=== PATIENT | female | born 1980 | race Caucasian/White ===

== ENCOUNTER 2018-07-05 07:51 | Emergency (ER) | payer BC ==
[2018-07-05] MEDS ORDERED: DIAZEPAM 5 MG TABLET ONE (08:25)
[2018-07-05] MEDS ORDERED: KETOROLAC 30 MG/ML INJ ONE (08:25)
--- NOTE | 2018-07-05 08:41 | EDPHYS ---
Physician Documentation [facility] Name: Tereza Hercules Age: 38 yrs Sex: Female : 1980 Arrival Date: 07/05/2018 Time: 07:54 Bed 19 Private MD: None, None ED Physician Bubba Zamora HPI: 07/05 08:14 This 38 yrs old Female presents to ER via Wheelchair with complaints of Back pm1 Pain. 08:14 The symptoms are located in the left low back and left buttocks. Onset: The pm1 symptoms/episode began/occurred 1 month(s) ago. The pain does not radiate. Associated signs and symptoms: Pertinent negatives: abdominal pain, chest pain, constipation, dysuria, fever, incontinence, numbness, tingling, urinary retention, vomiting, weakness, SOB. The problem was sustained Patient believes that she slept wrong and woke up with the pain to left lower back and buttocks. Modifying factors: The patient symptoms are alleviated by massage and raising left leg, the patient symptoms are aggravated by sitting and standing. Severity of symptoms: in the emergency department the symptoms are unchanged. The patient has experienced similar episodes in the past, Patient with a history of chronic back pain. The patient has not recently seen a physician. 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 - Social history:: Smoking status: Patient uses tobacco products, denies chronic smoking, but will smoke occasionally. - Ebola Screening: : Patient negative for fever greater than or equal to 101.5 degrees Fahrenheit, and additional compatible Ebola Virus Disease symptoms Patient denies exposure to infectious person Patient denies travel to an Ebola-affected area in the 21 days before illness onset No symptoms or risks identified at this time. ROS: 08:14 Constitutional: Negative for fever, chills, and weight loss, Eyes: Negative for injury, pm1 pain, redness, and discharge, ENT: Negative for injury, pain, and discharge, Neck: Negative for injury, pain, and swelling, Cardiovascular: Negative for chest pain, palpitations, and edema, Respiratory: Negative for shortness of breath, cough, wheezing, and pleuritic chest pain, Abdomen/GI: Negative for abdominal pain, nausea, vomiting, diarrhea, and constipation. 08:14 : Negative for injury, bleeding, discharge, and swelling, MS/Extremity: Negative for injury and deformity, Skin: Negative for injury, rash, and discoloration, Neuro: Negative for headache, weakness, numbness, tingling, and seizure. 08:14 Back: Positive for of the left low back and left buttock pain, Negative for radiated pain. Exam: 08:14 Constitutional: This is a well developed, well nourished patient who is awake, alert, pm1 and in no acute distress. Head/Face: Normocephalic, atraumatic. Eyes: Pupils equal round and reactive to light, extra-ocular motions intact. Lids and lashes normal. Conjunctiva and sclera are non-icteric and not injected. Cornea within normal limits. Periorbital areas with no swelling, redness, or edema. ENT: Nares patent. No nasal discharge, no septal abnormalities noted. Tympanic membranes are normal and external auditory canals are clear. Oropharynx with no redness, swelling, or masses, exudates, or evidence of obstruction, uvula midline. Mucous membranes moist. Neck: Trachea midline, no thyromegaly or masses palpated, and no cervical lymphadenopathy. Supple, full range of motion without nuchal rigidity, or vertebral point tenderness. No Meningismus. Chest/axilla: Normal chest wall appearance and motion. Nontender with no deformity. No lesions are appreciated. Cardiovascular: Regular rate and rhythm with a normal S1 and S2. No gallops, murmurs, or rubs. No pulse deficits. Respiratory: Lungs have equal breath sounds bilaterally, clear to auscultation and percussion. No rales, rhonchi or wheezes noted. No increased work of breathing, no retractions or nasal flaring. Abdomen/GI: Soft, non-tender, with normal bowel sounds. No distension or tympany. No guarding or rebound. No evidence of tenderness throughout. 08:14 Skin: Warm, dry with normal turgor. Normal color with no rashes, no lesions, and no evidence of cellulitis. MS/ Extremity: Pulses equal, no cyanosis. Neurovascular intact. Full, normal range of motion. 08:14 Back: ROM is normal, normal spinal alignment noted, muscle spasm, is appreciated in the left low back and left buttocks, Straight leg raises: right lower extremity does not illicit pain, left lower extremity does not illicit pain, Passively raising the patient's left leg improves her pain to left lower back and buttocks. 08:14 Neuro: Orientation: is normal, Mentation: is normal, Motor: moves all fours, strength is normal, strength is 5/5 in all extremities, Sensation: is normal, no obvious gross deficits. Vital Signs: 08:06 BP 102 / 61; Pulse 66; Resp 18; Pulse Ox 99% on R/A; Weight 58.97 kg; Height 5 ft. 3 em in. (160.02 cm); Pain 04/28; 08:06 Body Mass Index 23.03 (58.97 kg, 160.02 cm) em MDM: 08:00 Patient medically screened. pm1 08:16 Data reviewed: vital signs. Data interpreted: Pulse oximetry: on room air is 99 %. pm1 Interpretation: normal. 08:38 Counseling: I had a detailed discussion with the patient and/or guardian regarding: the pm1 historical points, exam findings, and any diagnostic results supporting the discharge/admit diagnosis, the need for outpatient follow up, to return to the emergency department if symptoms worsen or persist or if there are any questions or concerns that arise at home, Patient standing in room and stretching. 07/05 08:39 Order name: Urine Dipstick--Ancillary (enter results) 07/05 08:39 Order name: Urine --Ancillary (enter results) 07/05 08:26 Order name: Urine Dipstick-Ancillary (obtain specimen); Complete Time: 08:30 pm1 07/05 08:26 Order name: Urine Test (obtain specimen); Complete Time: 08:30 pm1 Administered Medications: 08:24 Drug: Valium 5 mg Route: PO; em 08:41 Follow up: Response: No adverse reaction; Pain is decreased em 08:30 Drug: TORadol 60 mg Route: IM; Site: right gluteus; em 08:41 Follow up: Response: No adverse reaction; Pain is decreased em Disposition: 07/05/18 08:40 Discharged to Home. Impression: Low back pain, Strain of muscle, fascia and tendon of lower back. - Condition is Stable. - Discharge Instructions: Back Pain, Adult, Muscle Strain, Musculoskeletal Pain, Back Injury Prevention, [id number]. - Prescriptions for Naprosyn 500 mg Oral Tablet - take 1 tablet by ORAL route 2 times per day take with food; 30 tablet. Valium 5 mg Oral Tablet - take 1 tablet by ORAL route every 8 hours As needed; 10 tablet. - Medication Reconciliation Form, Thank You Letter, Prescription Opioid Use form. - Follow up: Emergency Department; When: As needed; Reason: Worsening of condition. Follow up: Private Physician; When: 2 - 3 days; Reason: Recheck today's complaints, Continuance of care, Re-evaluation by your physician. - Problem is new. - Symptoms have improved. Addendum: 07/06/2018 10:14 Co-signature as Attending Physician, Bubba Zamora MD. g s Signatures: Dispatcher [employer] EDMS Christiano Hameed, DIRECTOR INDUSTRIAL MUSEUM DIRECTOR INDUSTRIAL MUSEUM em Wilson Meadows, DRY CELL TESTER DRY CELL TESTER pm1 Bubba Zamora MD MD Corrections: (The following items were deleted from the chart) 07/05 08:59 08:40 07/05/2018 08:40 Discharged to Home. Impression: Low back pain; Strain of muscle, em fascia and tendon of lower back. Condition is Stable. Forms are Medication Reconciliation Form, Thank You Letter, Antibiotic Education, Prescription Opioid Use. Follow up: Emergency Department; When: As needed; Reason: Worsening of condition. Follow up: Private Physician; When: 2 - 3 days; Reason: Recheck today's complaints, Continuance of care, Re-evaluation by your physician. Problem is new. Symptoms have improved. pm1
--- NOTE | 2018-07-05 08:41 | ER ---
Nurse's Notes [facility] Name: Tereza Hercules Age: 38 yrs Sex: Female : 1980 Arrival Date: 07/05/2018 Time: 07:54 Bed 19 Private MD: None, None Diagnosis: Low back pain;Strain of muscle, fascia and tendon of lower back Presentation: 07/05 08:03 Presenting complaint: Patient states: low back pain x 1 month, denies injury, em aggravated by movement, denies urinary symptoms. Transition of care: patient was not received from another setting of care. Onset of symptoms was May 2018. Risk Assessment: Do you want to hurt yourself or someone else? Patient reports no desire to harm self or others. Initial Sepsis Screen: Does the patient meet any 2 criteria? No. Patient's initial sepsis screen is negative. Does the patient have a suspected source of infection? No. Patient's initial sepsis screen is negative. Care prior to arrival: None. 08:03 Method Of Arrival: Wheelchair em 08:15 Acuity: STEPHANY 4 aa5 Triage Assessment: 08:06 General: Appears uncomfortable, Behavior is cooperative. Pain: Complains of pain in em lumbar area, left low back and right low back. Musculoskeletal: Circulation, motion, and sensation intact. Capillary refill < 3 seconds, Range of motion: intact in all extremities. 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 - Social history:: Smoking status: Patient uses tobacco products, denies chronic smoking, but will smoke occasionally. - Ebola Screening: : Patient negative for fever greater than or equal to 101.5 degrees Fahrenheit, and additional compatible Ebola Virus Disease symptoms Patient denies exposure to infectious person Patient denies travel to an Ebola-affected area in the 21 days before illness onset No symptoms or risks identified at this time. Screenin:08 Abuse screen: Denies threats or abuse. Nutritional screening: No deficits noted. em Tuberculosis screening: No symptoms or risk factors identified. Fall Risk None identified. Assessment: 08:09 General: Appears uncomfortable, Behavior is calm, cooperative. Pain: Complains of pain em in right low back and left low back and lumbar area Pain currently is 9 out of 10 on a pain scale. Pain began 1 month ago Alleviated by repositioning, Aggravated by exercise, increased activity. Neuro: Level of Consciousness is awake, alert, obeys commands, Oriented to person, place, time, situation. Cardiovascular: Capillary refill < 3 seconds Patient's skin is warm and dry. Respiratory: Airway is patent Respiratory effort is even, unlabored, Respiratory pattern is regular, symmetrical. GI: Abdomen is flat. : Denies burning with urination, discharge, vaginal bleeding. EENT: No signs and/or symptoms were reported regarding the EENT system. Derm: Skin is intact, Skin is pink, warm \\T\\ dry. Musculoskeletal: Circulation, motion, and sensation intact. Capillary refill < 3 seconds, Range of motion: intact in all extremities. 08:09 Reassessment: I agree with assessment completed by Christiano Hameed LVN . aa5 08:39 Reassessment: Patient appears in no apparent distress at this time. Patient and/or em family updated on plan of care and expected duration. Pain level reassessed. Patient is alert, oriented x 3, equal unlabored respirations, skin warm/dry/pink. pt standing in room, states, "I am stretching and feel better now." provider notified Patient states symptoms have improved. Vital Signs: 08:06 BP 102 / 61; Pulse 66; Resp 18; Pulse Ox 99% on R/A; Weight 58.97 kg; Height 5 ft. 3 em in. (160.02 cm); Pain 9/10; 08:06 Body Mass Index 23.03 (58.97 kg, 160.02 cm) em ED Course: 07:54 Patient arrived in ED. sb2 07:54 None, None is Private Physician. sb2 07:57 Christiano Hameed LVN is Primary Nurse. em 07:59 Wilson Meadows NP is PHCP. pm1 07:59 Bubba Zamora MD is Attending Physician. pm1 08:06 Arm band placed on. em 08:08 Patient has correct armband on for positive identification. Bed in low position. Call em light in reach. Adult w/ patient. 08:15 Triage completed. aa5 08:58 No provider procedures requiring assistance completed. Patient did not have IV access em during this emergency room visit. Administered Medications: 08:24 Drug: Valium 5 mg Route: PO; em 08:41 Follow up: Response: No adverse reaction; Pain is decreased em 08:30 Drug: TORadol 60 mg Route: IM; Site: right gluteus; em 08:41 Follow up: Response: No adverse reaction; Pain is decreased em Outcome: 08:40 Discharge ordered by . pm1 08:58 Discharged to home via wheelchair. em 08:58 Condition: good 08:58 Discharge instructions given to patient, Instructed on discharge instructions, follow up and referral plans. no drinking with medication, no driving heavy equipment, medication usage, Demonstrated understanding of instructions, follow-up care, medications, Prescriptions given X 2. 08:59 Patient left the ED. em Signatures: Christiano Hameed, NICOLE PARKING LOT SIGNALER em Shraddha Sanches RN RN aa5 Wilson Meadows, MEMO INTERNET MARKETING ANALYST pm1 Briana Flores sb2
[2018-07-05 09:09] VITALS: BP 102/61; O2SAT 99
[2018-07-05 14:25] LABS: Urine Blood TRACE (NEG); Urine Glucose NEGATIVE (NEG); Urine Protein NEGATIVE (NEG); Urine Specific Gravity 1.015 (1.005-1.030)
== END 2018-07-05 08:59 | disposition home or self-care (01) ==
LOC: ER 07:51
DX: S39.012A Strain of muscle, fascia and tendon of lower back, initial encounter (principal); X58.XXXA Exposure to other specified factors, initial encounter; Z72.0 Tobacco use
CPT/HCPCS: 81003; 81025; 96372; 99283

== ENCOUNTER 2020-03-22 03:36 | Emergency (ER) | payer BC ==
[2020-03-22 04:11] LABS: Basophils % 0.8 % (0-1.3); Hematocrit 35.9 % (36.0-45.0); MPV 7.6 fL (7.6-11.3); RBC Red Blood Cell Count 4.14 M/uL (3.86-4.86)
[2020-03-22 04:15] LABS: Potassium 3.4 mmol/L (3.5-5.1)
[2020-03-22 04:34] LABS: Barbiturates NEGATIVE (NEGATIVE); Benzodiazepines POSITIVE (NEGATIVE); Cocaine NEGATIVE (NEGATIVE); METHAMPHETAM POSITIVE (NEGATIVE); Methadone NEGATIVE (NEGATIVE); Opiates NEGATIVE (NEGATIVE); Phencyclidine NEGATIVE (NEGATIVE); THC Cannibis NEGATIVE (NEGATIVE)
[2020-03-22 05:41] LABS: Urine Specific Gravity >1.030 (1.005-1.030)
[2020-03-22 05:41] LABS: Urine Blood TRACE (NEG); Urine Glucose NEGATIVE (NEG); Urine Protein 2+ (NEG); Urine Specific Gravity >1.030 (1.005-1.030); Urine pH 5.5 (5.0-7.0)
[2020-03-22] MEDS ORDERED: NA CHLORIDE 0.9% 1,000 ML ONE (06:14)
[2020-03-22] MEDS ORDERED: TETANUS & DIPHTHERIA TOX,ADULT 0.5 ML VIAL ONE (07:56)
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
[2020-03-22] MEDS ORDERED: IBUPROFEN 400 MG TAB ONE (08:57)
[2020-03-22 10:10] VITALS: TEMP 98
[2020-03-22 10:12] VITALS: O2SAT 100
[2020-03-22 10:13] VITALS: BP 102/65
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
== END 2020-03-22 10:04 | disposition home or self-care (01) ==
LOC: ER 03:36
DX: F15.10 Other stimulant abuse, uncomplicated (principal); V49.40XA Driver injured in collision with unspecified motor vehicles in traffic accident, initial encounter; E11.9 Type 2 diabetes mellitus without complications; Z23 Encounter for immunization; Z88.0 Allergy status to penicillin
CPT/HCPCS: 85025; 80048; 36415; 80320; 81025; 82565; 80307 ×8; 81003; 70450; 72125; 71260; 74177; 90714; Q9967; J7030; 90471; 96360; 96361; 99284; G0390

== ENCOUNTER 2021-03-19 12:52 | Emergency (ER) | payer BC ==
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
[2021-03-19 18:31] VITALS: BP 130/81; TEMP 97.5
[2021-03-19 18:32] VITALS: O2SAT 99
== END 2021-03-19 18:24 | disposition home or self-care (01) ==
LOC: ER 12:52
PROC: 0JQ00ZZ Repair Scalp Subcutaneous Tissue and Fascia, Open Approach (ICD-10-PCS; principal; 2021-03-19)
DX: S01.01XA Laceration without foreign body of scalp, initial encounter (principal); W22.8XXA Striking against or struck by other objects, initial encounter; Y92.009 Unspecified place in unspecified non-institutional (private) residence as the place of occurrence of the external cause; F17.210 Nicotine dependence, cigarettes, uncomplicated; E11.9 Type 2 diabetes mellitus without complications; Z88.0 Allergy status to penicillin
CPT/HCPCS: 70450; 99284

== ENCOUNTER 2023-03-16 18:44 | Emergency (ER) | payer BC ==
[2023-03-16] MEDS ORDERED: LORazepam 2 MG/ML VIAL ONE (18:53)
[2023-03-16] MEDS ORDERED: WATER FOR INJ,STERILE 10 ML ONE (18:53)
[2023-03-16] MEDS ORDERED: ZIPRASIDONE MESYLA 20 MG/VIAL IM ONE (18:53)
[2023-03-16 19:04] LABS: Hematocrit 38.1 % (36.0-45.0); Lymphocytes % 35.1 % (15.3-44.8); MPV 6.9 fL (7.6-11.3); RBC Red Blood Cell Count 3.92 M/uL (3.86-4.86)
[2023-03-16 19:11] LABS: Protime INR 1.08
[2023-03-16 19:35] LABS: ALT/SGPT 19 U/L (13-56); AST/SGOT 13 U/L (15-37); Albumin 3.3 g/dL (3.4-5.0); Alkaline Phosphatase 62 U/L (45-117); BUN Blood Urea Nitrogen 19 mg/dL (7-18); Bicarbonate 29 mEq/L (21-32); Bilirubin Total 0.2 mg/dL (0.2-1.0); Glomerular Filtration Rate 94 ml/min (=/>90); Glucose Level 74 mg/dL (74-106); Potassium 3.5 mEq/L (3.5-5.1); Protein, Total 6.1 g/dL (6.4-8.2); Sodium Level 140 mEq/L (136-145)
[2023-03-16] MEDS ORDERED: RSI MEDICATION KIT IV ONE ×2 (19:35→23:39)
[2023-03-16 19:36] LABS: Bilirubin Direct < 0.1 mg/dL (0-0.2); Bilirubin Indirect, Calculated ND mg/dL (0.2-0.8)
[2023-03-16] MEDS ORDERED: MIDAZOLAM HCL 2 MG/2 ML INJ ONE (20:32)
--- NOTE | 2023-03-16 20:47 | RAD REPORT ---
EXAM DESCRIPTION: RAD - Chest Single View - 03/16/2023 8:38 pm CLINICAL HISTORY: altered mental status Chest pain. COMPARISON: CHEST PA AND LAT 2 VIEW dated 09/18/2014 FINDINGS: Portable technique limits examination quality. The lungs are grossly clear. The heart is normal in size. No displaced fractures. IMPRESSION: No acute intrathoracic process suspected.
[2023-03-16] MEDS ORDERED: KETAMINE HCL IN 0.9 % NACL 50 MG/5 ML SYRINGE IV ONE (20:58)
--- NOTE | 2023-03-16 21:26 | RAD REPORT ---
EXAM DESCRIPTION: CT - [id number] - 03/16/2023 9:16 pm CLINICAL HISTORY: Trauma, head and neck injury. MENTAL STATUS CHANGE COMPARISON: No comparisons TECHNIQUE: Axial 5 mm thick images of the head were obtained. Axial 2 mm thick images of the cervical spine were obtained with sagittal and coronal reconstruction images generated and reviewed. All CT scans are performed using dose optimization technique as appropriate and may include automated exposure control or mA/KV adjustment according to patient size. FINDINGS: CT HEAD WITHOUT CONTRAST: No acute hemorrhage, hydrocephalus or extra-axial collection is identified.No areas of brain edema or midline shift. The paranasal sinuses and mastoids are clear.The calvarium is intact. CT CERVICAL SPINE WITHOUT CONTRAST: No fracture or subluxation.Mild spondylosis C5-6.No prevertebral soft tissues swelling is identified. IMPRESSION: No acute intracranial or cervical spine findings.
[2023-03-16 22:00] LABS: Specific Gravity < 1.005 (1.005-1.030)
[2023-03-16 22:09] LABS: Barbiturates NEGATIVE (NEGATIVE); Benzodiazepines POSITIVE (NEGATIVE); Cocaine NEGATIVE (NEGATIVE); METHAMPHETAM POSITIVE (NEGATIVE); Methadone NEGATIVE (NEGATIVE); Opiates NEGATIVE (NEGATIVE); Phencyclidine NEGATIVE (NEGATIVE); THC Cannibis NEGATIVE (NEGATIVE)
[2023-03-16] MEDS ORDERED: D10W 250 ML IV ONE (22:09)
[2023-03-16 22:17] LABS: Arterial Blood Carboxyhemoglob 2.5 % (0-1.5); Blood Gas Oxyhemoglobin 89.2 % (94-97)
[2023-03-16 22:28] LABS: Calcium Oxalate Crystals- Ur Few /HPF (None Seen); Specific Gravity < 1.005 (1.005-1.030); Urine Bacteria <20 /HPF (<20); Urine Bilirubin NEGATIVE (Negative); Urine Blood Negative (Negative); Urine Clarity Turbid (Clear); Urine Color Colorless (Yellow); Urine Glucose NEGATIVE (Negative); Urine Protein NEGATIVE (Negative); Urine Urobilinogen Normal (Normal); Urine pH 6.5 (5.0-7.0)
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
[2023-03-16] MEDS ORDERED: NALOXONE HCL 2 MG/2 ML VIAL ONE (22:37)
[2023-03-16] MEDS ORDERED: NA CHLORIDE 0.9% 2,000 ML ONE (22:37)
[2023-03-16] MEDS ORDERED: HALOPERIDOL LACT 5 MG/ML INJ ONE (23:22)
[2023-03-16] MEDS ORDERED: DIPHENHYDRAMINE 50 MG/ML VIAL ONE (23:22)
[2023-03-16] MEDS ORDERED: NA CHLORIDE 0.9% 1,000 ML ONE (23:39)
[2023-03-16] MEDS ORDERED: ETOMIDATE 20 MG/10 ML VIAL IV ONE (23:43)
[2023-03-16] MEDS ORDERED: propofoL 1,000 MG/100 ML VIAL IV ONE (23:49)
[2023-03-16] MEDS ORDERED: MIDAZOLAM HCL IN 0.9 % NACL/PF 100 MG/100 ML BAG IVPB ONE (23:49)
[2023-03-17 00:28] LABS: Arterial Blood Carboxyhemoglob 1.8 % (0-1.5); Blood Gas Oxyhemoglobin 94.8 % (94-97); Blood O2 Saturation 98.1 % (92-98.5)
[2023-03-17 02:31] VITALS: TEMP 97
[2023-03-17 02:35] VITALS: O2SAT 100
[2023-03-17 02:43] VITALS: BP 99/57
--- NOTE | 2023-03-17 13:09 | EKG ---
Test Date: 2023-03-16 Test Time: 21:36:42 [employer] Technician: TALA MEASUREMENT RESULTS: Intervals: Rate: 74 OH: 148 QRSD: 74 QT: 436 QTc: 483 Wilson: P: 82 OH: 148 QRS: 90 T: 74 INTERPRETIVE STATEMENTS: Normal sinus rhythm Rightward axis Prolonged QT Abnormal ECG No previous ECG available for comparison Electronically Signed On 03-17-23 13:08:53 CDT by Jarrod Ridley
--- NOTE | 2023-03-17 19:30 | RAD REPORT ---
EXAM DESCRIPTION: RAD - Chest Single View - 03/17/2023 12:01 am CLINICAL HISTORY: The patient is 42 years old and is Female; air way protection TECHNIQUE: Frontal view of the chest. COMPARISON: March 16, 2023 8:34 PM FINDINGS: Lungs: No consolidation. Pleural space: Unremarkable. No pneumothorax. Heart: Unremarkable. Mediastinum: Unremarkable. Bones/joints: Unremarkable. Tubes, lines and devices: Endotracheal tube with tip 5 cm above the kinsey. IMPRESSION: Endotracheal tube with tip 5 cm above the kinsey. Electronically signed by: Oscar Peoples MD 03/17/2023 12:31 AM CDT Due to temporary technical issues with the PACS/Fluency reporting system, reports are being signed by the in house radiologists without review as a courtesy to insure prompt reporting. The interpreting radiologist is fully responsible for the content of the report.
== END 2023-03-17 02:06 ==
LOC: ER 18:44
PROC: 0BH17EZ Insertion of Endotracheal Airway into Trachea, Via Natural or Artificial Opening (ICD-10-PCS; principal; 2023-03-17)
PROC: 5A1935Z Respiratory Ventilation, Less than 24 Consecutive Hours (ICD-10-PCS; 2023-03-17)
DX: R41.82 Altered mental status, unspecified (principal); T43.625A Adverse effect of amphetamines, initial encounter; Z88.0 Allergy status to penicillin
CPT/HCPCS: 31500; 93005; 85025; 81001; 80048; 36415; 81025; 85610; 82947; 80076; 85730; 80307; 70450; 72125; 71045 ×2; 82805 ×2; 80143; 80179; 82077; 94002; J2704; J2250 ×2; J2310; J1630; J1200; J3486; J7030 ×2; 96372; 99285

== ENCOUNTER → 2023-09-03 | Emergency (ER) | payer BC, OTHER ==
[~2023-09-03] MED LIST: GABAPENTIN 300 MG CAP ONE; KETOROLAC 30 MG/ML INJ ONE
--- NOTE | 2023-09-03 16:52 | RAD REPORT ---
EXAM DESCRIPTION: RAD - Chest Pa And Lat (2 Views) - 09/03/2023 4:12 pm CLINICAL HISTORY: Chest pain;Cough COMPARISON: Chest Single View dated 03/16/2023; Chest Single View dated 03/16/2023; CHEST PA AND LAT 2 VIEW dated 09/18/2014 TECHNIQUE: PA and lateral views of the chest were obtained. FINDINGS: The lungs are clear. Heart size is normal and central vasculature is within normal limits. No pleural effusion or pneumothorax seen. No acute bony finding noted. IMPRESSION: No acute cardiopulmonary process.
--- NOTE | 2023-09-03 17:16 | RAD REPORT ---
EXAM DESCRIPTION: CT - C Spine Wo Con - 09/03/2023 4:20 pm CLINICAL HISTORY: Pain COMPARISON: None. TECHNIQUE: Axial thin cut noncontrast CT images of the cervical spine were obtained with sagittal an d coronal reconstruction images generated and reviewed. All CT scans are performed using dose optimization technique as appropriate and may include automated exposure control or mA/KV adjustment according to patient size. FINDINGS: Cervical body height and alignment are normal. No disk space narrowing. No fracture or acu te bony abnormality. Mild degenerative changes throughout the cervical spine with up to moderate disc height loss at C5-6. Endplate and uncovertebral joint remodeling most pronounced at that level, contributing to mild bila teral neural foraminal narrowing. No bony central canal stenosis. No paraspinal mass or hematoma. Comminuted mildly displaced midshaft right clavicular fracture. Visualized lung apices are clear. IMPRESSION: Mild degenerative changes without acute cervical Spine traumatic abnormality. Comminuted mildly displaced midshaft right clavicular fracture.
--- NOTE | 2023-09-03 17:17 | RAD REPORT ---
EXAM DESCRIPTION: Shoulder Right 2 View - 09/03/2023 4:12 pm CLINICAL HISTORY: PAIN COMPARISON: No comparisons TECHNIQUE: Internal and external rotation views of the right shoulder were obtained. FINDINGS: Mildly displaced midshaft right clavicle fracture. Widening of the right AC joint. Glenohu meral joint is normal in appearance. No other acute or suspicious findings. IMPRESSION: Mildly displaced midshaft right clavicular fracture. Widening of the right AC joint, may relate to traumatic separation versus postsurgical changes.
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
[2023-09-03 18:31] VITALS: BP 134/81; TEMP 98.2; O2SAT 99
== END ==
LOC: ER 15:28
DX: S42.021A Displaced fracture of shaft of right clavicle, initial encounter for closed fracture (principal); S43.004A Unspecified dislocation of right shoulder joint, initial encounter; M54.2 Cervicalgia; E11.9 Type 2 diabetes mellitus without complications; Z88.0 Allergy status to penicillin
CPT/HCPCS: 71046; 72125; 96372; 99284

== ENCOUNTER → 2023-09-11 | Emergency (ER) | payer OTHER ==
--- NOTE | 2023-09-11 19:36 | EDPHYS ---
Physician Documentation [facility] Name: Tereza Hercules Age: 43 yrs Sex: Female : 1980 Arrival Date: 09/11/2023 Time: 19:01 Bed IW8 Private MD: ED Physician Hi Vargas HPI: 09/11 21:03 This 43 yrs old Female presents to ER via Unassigned with complaints of clavicle pain. kb 21:03 Patient is a 43-year-old female who presents for right clavicle pain that she says kb started 3 days ago. States she was seen 3 days ago and diagnosed with a dislocated clavicle and told to follow-up with orthopedics but she has not had a chance to do that. Reports increased pain today. ROS: 21:03 Constitutional: Negative for fever, chills, and weight loss, kb 21:03 MS/extremity: Positive for pain, swelling, tenderness, of the right clavicle, 21:03 All other systems are negative, Exam: 21:03 Constitutional: This is a well developed, well nourished patient who is awake, alert, kb and in no acute distress. Head/Face: Normocephalic, atraumatic. ENT: Moist Mucous membranes Cardiovascular: Regular rate Respiratory: Respirations even and unlabored. No increased work of breathing. Talking in full sentences Skin: Warm, dry with normal turgor. Normal color. Neuro: Awake and alert, GCS 15, oriented to person, place, time, and situation. Moves all extremities. Normal gait. 21:03 Musculoskeletal/extremity: Extremities: grossly normal except: noted in the right clavicle: decreased ROM, pain, swelling, tenderness, ROM: intact in all extremities, Circulation is intact in all extremities. Sensation intact. MDM: 19:10 Patient medically screened. kb 21:04 Differential diagnosis: Fracture, dislocation, contusion. Data reviewed: vital signs, kb nurses notes. Historians other than the Patient: EMS: [facility]. Counseling: I had a detailed discussion with the patient and/or guardian regarding the historical points, exam findings, and any diagnostic results supporting the discharge/admit diagnosis, the need for outpatient follow up, a orthopedic surgeon, to return to the emergency department if symptoms worsen or persist or if there are any questions or concerns that arise at home. ED course: Patient elected to leave from the lobby prior to diagnostic testing. Patient did say that she wanted to go home and rest and she would call orthopedics tomorrow for follow-up. . Administered Medications: No medications were administered Disposition: 09/12 09:03 Co-signature as Attending Physician, Hi Vargas MD I reviewed the patient's care rn provided by the Advanced Practice Provider and agree with the diagnosis and treatment plan. Disposition Summary: 09/11/23 19:36 Discharge Ordered Notes: Location: Home kb Condition: Stable kb Diagnosis - Pain to right clavicle kb Followup: kb - With: Emergency Department - When: As needed - Reason: Worsening of condition Followup: kb - With: Private Physician - When: 2 - 3 days - Reason: Recheck today's complaints, Continuance of care, Re-evaluation by your physician Discharge Instructions: - Discharge Summary Sheet kb - Musculoskeletal Pain kb Forms: - Medication Reconciliation Form kb - Thank You Letter kb - Antibiotic Education kb - Prescription Opioid Use kb - Patient Portal Instructions kb - Leadership Thank You Letter kb Signatures: Dispatcher [employer] EDNohelia Espana, JOSHUA-C CUSTOMER SERVICE CLERK-Ckb Hi Vargas MD MD yarn spinner: (The following items were deleted from the chart) 09/11 19:42 19:11 Clavicle Right+[id number] ordered. EDMN TIM
--- NOTE | 2023-09-11 19:44 | ER ---
Nurse's Notes [facility] Name: Tereza Hercules Age: 43 yrs Sex: Female : 1980 Arrival Date: 09/11/2023 Time: 19:01 Bed IW8 Private MD: Diagnosis: Pain to right clavicle Presentation: 09/11 19:43 Chief complaint: pt seen by provider from [facility] and discharged before triage and as6 signing paper work. ED Course: 19:10 Patient arrived in ED. kb 19:10 No[facility] Santos [facility]C [facility] kb 19:10 Hi Vargas MD is Attending Physician. kb Administered Medications: No medications were administered Outcome: 19:36 Discharge ordered by MD. kb 19:44 Patient left the ED. as6 Signatures: Nohelia Santos FNP-C FNP-Ckb Slawson, Ashby, RN RN as6
== END ==
LOC: ER 19:01
DX: M25.511 Pain in right shoulder (principal)